=== PATIENT | female | born 1960 | race Two or more races ===

== ENCOUNTER 2021-03-19 09:25 | Emergency (ER) | payer SELFPAY ==
[2021-03-19 09:31] VITALS: BP 173/97; PULSE 70; TEMP 98; BMI 22.8
[2021-03-19] MEDS ORDERED: CYCLOBENZAPRINE HCL 10 MG TABLET (FP) PO ONE (09:55)
[2021-03-19] MEDS ORDERED: KETOROLAC TROMETHAMINE 60 MG/2 ML VIAL IM ONE (09:55)
[2021-03-19] MEDS ORDERED: KETOROLAC TROMETHAMINE 60 MG/2 ML VIAL ONE (09:59)
[2021-03-19] MEDS ORDERED: CYCLOBENZAPRINE HCL 10 MG TABLET (FP) ONE (09:59)
== END 2021-03-19 11:10 | disposition home or self-care (01) ==
LOC: JERFT 09:25
PROC: 3E0233Z Introduction of Anti-inflammatory into Muscle, Percutaneous Approach (ICD-10-PCS; principal; 2021-03-19)
DX: M54.5 Low back pain (principal)
CPT/HCPCS: 99284-25

== ENCOUNTER 2024-08-04 16:07 | Observation (INO) | payer OTHER ==
[2024-08-04 16:57] LABS: BASO % 0.3 % (0-2.0); EOS % 1.6 % (0-4.5); HEMATOCRIT 36.5 % (32.4-45.2); HEMOGLOBIN 12.2 GM/dL (10.7-15.3); LYMPH % 41.2 % (8-40); MCH 26.4 pg (25.7-33.7); MCHC 33.4 g/dl (32.0-36.0); MEAN CELL VOLUME 78.9 fl (80-96); MEAN PLT VOLUME 8.5 fl (7.5-11.1); MONO % 6.2 % (3.8-10.2); NEUT % 50.7 % (42.8-82.8); PLATELET COUNT 292 10^3/uL (134-434); RBC 4.62 M/mm3 (3.60-5.2); RDW 14.4 % (11.6-15.6); WHITE BLOOD COUNT 6.9 K/mm3 (4.0-10.0)
[2024-08-04 16:58] LABS: INR 1.01 (0.83-1.09); PROTHROMBIN TIME (PATIENT) 11.6 SEC (9.7-13.0)
[2024-08-04 17:00] LABS: ACTIVATED PTT 26.7 SECONDS (25.2-36.5)
[2024-08-04 17:08] LABS: ALBUMIN 4.1 g/dl (3.4-5.0); BLOOD UREA NITROGEN 17.8 mg/dL (7-18); CALCIUM 9.6 mg/dL (8.5-10.1)
[2024-08-04 17:12] LABS: BILIRUBIN,TOTAL 1.2 mg/dL (0.2-1); TOT PROT 7.4 g/dl (6.4-8.2)
[2024-08-04] MEDS ORDERED: ONDANSETRON 4 MG/2 ML VIAL ONE (17:22)
[2024-08-04] MEDS ORDERED: MECLIZINE HCL 25 MG TABLET (FP) ONE (17:22)
[2024-08-04] MEDS ORDERED: METOCLOPRAMIDE HCL INJECTION 10 MG/2 ML VIAL ONE (17:25)
[2024-08-04] MEDS: ONDANSETRON 4 MG/2 ML VIAL IVPUSH ONE (17:26)
[2024-08-04] MEDS: METOCLOPRAMIDE HCL INJECTION 10 MG/2 ML VIAL IVPB ONE (17:35)
[2024-08-04] MEDS: MECLIZINE HCL 25 MG TABLET (FP) PO ONE (17:50)
[2024-08-04 18:50] LABS: EPI CELLS 4 /uL (0-25.1); HYALINE CASTS 0 /uL (0-3.1); URINE APPEARANCE CLEAR; URINE BACTERIA 119 /uL (0-1359); URINE BILIRUBIN NEGATIVE (NEGATIVE); URINE COLOR YELLOW; URINE GLUCOSE (UA) NEGATIVE (NEGATIVE); URINE KETONE NEGATIVE (NEGATIVE); URINE LEUK ESTERASE TRACE (NEGATIVE); URINE NITRITE NEGATIVE (NEGATIVE); URINE PROTEIN NEGATIVE (NEGATIVE); URINE RBC 11 /uL (0-23.9); URINE WBC 12 /uL (0-25.8)
[2024-08-04] MEDS: diazePAM 2 MG TABLET PO ONE (19:02)
[2024-08-04] MEDS ORDERED: MECLIZINE HCL 25 MG TABLET (FP) PO PRN (23:29)
[2024-08-04] MEDS: SODIUM CHLORIDE 1,000 ML IV SCH (23:53)
[2024-08-05 01:49] LABS: BILIRUBIN,DIRECT 0.3 mg/dL (0.0-0.2)
[2024-08-05 02:51] VITALS: BMI 27.1
[2024-08-05] MEDS: MECLIZINE HCL 25 MG TABLET (FP) PO SCH (06:45)
[2024-08-05] MEDS: INSULIN ASPART SLIDING SCALE (NOVOLOG) 1 VIAL SQ SCH (06:46)
[2024-08-05 08:38] LABS: HEMATOCRIT 36.2 % (32.4-45.2); MCH 26.4 pg (25.7-33.7); MCHC 33.2 g/dl (32.0-36.0); MEAN CELL VOLUME 79.7 fl (80-96); MEAN PLT VOLUME 8.8 fl (7.5-11.1); PLATELET COUNT 266 10^3/uL (134-434); RBC 4.54 M/mm3 (3.60-5.2); RDW 14.5 % (11.6-15.6); WHITE BLOOD COUNT 7.2 K/mm3 (4.0-10.0)
[2024-08-05 08:41] LABS: POTASSIUM 3.7 mmol/L (3.5-5.1)
[2024-08-05 08:55] LABS: ALBUMIN 3.7 g/dl (3.4-5.0); BLOOD UREA NITROGEN 12.5 mg/dL (7-18); CALCIUM 9.4 mg/dL (8.5-10.1); MAGNESIUM 2.2 mg/dL (1.8-2.4)
[2024-08-05 08:57] LABS: CREATININE 0.8 mg/dL (0.55-1.3)
[2024-08-05 09:00] LABS: BILIRUBIN,TOTAL 1.7 mg/dL (0.2-1)
[2024-08-05] MEDS: ENOXAPARIN NA (PORCINE) 40 MG/0.4 ML DISP.SYRIN SQ SCH (10:58)
[2024-08-05] MEDS: ASPIRIN 81 MG CHEWABLE TABLETS PO SCH (17:16)
[2024-08-05] MEDS: ATORVASTATIN CA 40 MG TABLET (FP) PO SCH (21:50)
[2024-08-06 07:29] VITALS: RESP 18
[2024-08-06 15:32] VITALS: BP 132/79; PULSE 71; TEMP 98.8
== END 2024-08-06 16:19 | disposition home or self-care (01) ==
LOC: JER 16:07 → JERBED 20:03 → J7W 08-05 01:25
PROVIDERS: ADMIT Internal Medicine; ATTEND Internal Medicine
PROC: 3E023GC Introduction of Other Therapeutic Substance into Muscle, Percutaneous Approach (ICD-10-PCS; principal; 2024-08-04)
PROC: 3E033GC Introduction of Other Therapeutic Substance into Peripheral Vein, Percutaneous Approach (ICD-10-PCS; 2024-08-04)
DX: R42 Dizziness and giddiness (principal); I10 Essential (primary) hypertension; R73.03 Prediabetes; R73.9 Hyperglycemia, unspecified; E80.6 Other disorders of bilirubin metabolism; D50.9 Iron deficiency anemia, unspecified
CPT/HCPCS: 36415; 70450-TC; 70551-TC; 71045-TC-FY; 80053; 80061; 81003; 82248; 82728; 82962; 83036; 83540; 83550; 83690; 83735; 84100; 84439; 84443; 84484; 85025; 85027; 85045; 85610; 85730; 87086; 93005; 93010; 93306-TC; 96372; 96374; 97116-GP; 97161-GP; 99285-25; G0378